=== PATIENT | male | born 1980 | race Caucasian/White ===

== ENCOUNTER → 2018-06-02 | Outpatient (CLI) | payer OTHER ==
--- NOTE | 2018-06-02 12:30 | SFUN ---
SLEEP CENTER FOLLOW UP NOTE DATE OF SERVICE: 06/02/2018 This 37-year-old gentleman has been followed in sleep center for treatment of obstructive sleep apnea-hypopnea syndrome. The patient continued to use his CPAP equipment every night, sometimes while putting mask on according to his he may have some snoring. [place] Sleepiness Scale according to increased to 19. I checked the patient's CPAP unit. CPAP pressure is 9 cm of water. Ramp is 35 minutes. Usage is 100% of the time more than 4 hours every 7.8 hours. Leak is 13 L/minute, which is normal range. Apnea-hypopnea index reading for the last number months 1.8, which is normal. MEDICATIONS: Metformin, lisinopril, atorvastatin. PHYSICAL EXAMINATION: During physical exam, patient in no distress. VITAL SIGNS: BP 123/54, HR 70, RR 16, height 5 feet 9-1/2 inches, weight 256, one pound more than 2 years ago, BMI 36.3, temperature 97.4, oxygen saturation at room air 97%. HEENT: PERRLA, EOMI. Oropharynx extremely low position of soft palate. NECK: Supple, no JVD. Thyroid is not palpable. LUNGS: Clear to percussion and to auscultation. Good air exchange. No wheezing or rhonchi. HEART: S1, S2 regular. No murmurs, gallops, or rubs. ABDOMEN: Slightly obese. EXTREMITIES: No clubbing or cyanosis. CHEMISTRY TECHNICAL OFFICER: Awake, alert, and oriented X3. Cranial nerves 2 to 7 intact. There is no fasciculation or atrophy. noted. No focal deficits observed. IMPRESSION: 1. Severe obstructive sleep apnea hypopnea syndrome. Patient demonstrated 100% compliance with treatment benefitting from treatment. 2. Obesity. 3. Hypertension. 4. Diabetes mellitus. 5. Hyperlipidemia. 6. Status post neck surgery. 7. Status post hernia repair. PLAN: 1. I changed ramp time down to 15 minutes from 35. I believe that long ramp time is the reason why patient is snoring at the beginning of the night. 2. Losing weight. 3. Sleep hygiene with regular time in bed for at least 8 hours. 4. No driving if feeling sleepiness. 5. Prescription for all necessary CPAP supplies including prescription for mask, tube, filters. Thank you very much for allowing me to participate in management of your patient. Sincerely, Ghulam Colmenares MD, PhD, FAASM Diplomat of [employer] [employer] Attorney of [facility] [place] MMCLARITA / DONADL: [id number] /
== END | disposition home or self-care (01) ==
LOC: SLEEP 10:29
PROVIDERS: ATTEND Internal Medicine
DX: G47.33 Obstructive sleep apnea (adult) (pediatric) (principal); I10 Essential (primary) hypertension; E11.9 Type 2 diabetes mellitus without complications; E78.5 Hyperlipidemia, unspecified; Z99.89 Dependence on other enabling machines and devices; Z79.84 Long term (current) use of oral hypoglycemic drugs; Z79.899 Other long term (current) drug therapy; E66.9 Obesity, unspecified; Z68.36 Body mass index [BMI] 36.0-36.9, adult; Z98.890 Other specified postprocedural states